=== PATIENT | male | born 1995 | race African-American/Black ===

== ENCOUNTER 2019-04-08 20:40 | Emergency (ER) | payer OTHER ==
[~2019-04-08] VITALS: Ht 175.3 cm; Wt 77.1 kg
[2019-04-08] MEDS ORDERED: FLUORESCEIN SODIUM OPHTH 1 EA STRIP ONE (21:01)
[2019-04-08] MEDS ORDERED: ACETAMINOPHEN ES 500 MG TABLET ONE (21:25)
[2019-04-08] MEDS ORDERED: ACETAMINOPHEN 325 MG TABLET PO ONE (21:30)
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
[2019-04-08 23:51] VITALS: BP 118/78
== END 2019-04-08 23:52 ==
LOC: ER 20:46
DX: S00.81XA Abrasion of other part of head, initial encounter (principal); H57.12 Ocular pain, left eye; Z60.2 Problems related to living alone; Y08.89XA Assault by other specified means, initial encounter; Y93.89 Activity, other specified; Y92.89 Other specified places as the place of occurrence of the external cause; Y99.8 Other external cause status
CPT/HCPCS: 70480-TC